=== PATIENT | female | born 1960 | race Two or more races ===

== ENCOUNTER 2019-04-10 13:33 | Emergency (ER) | payer OTHER ==
[2019-04-10 13:40] VITALS: BP 111/89; PULSE 86; TEMP 98; BMI 32.5
--- NOTE | 2019-04-10 14:49 | PDOC ---
Documentation entered by Maximiliano Resendez SCRIBE, acting as scribe for Bryan Maravilla MD. Bryan Maravilla MD: This documentation has been prepared by the Dipti perera Angel, SCRIBE, under my direction and personally reviewed by me in its entirety. I confirm that the documentation accurately reflects all work, treatment, procedures, and medical decision making performed by me. Attending Attestation - Resident Resident Name: [email or web address] - ED Attending Attestation I have performed the following: I have examined & evaluated the patient, The case was reviewed & discussed with the resident, I agree w/resident's findings & plan, Exceptions are as noted - HPI HPI: 04/10/19 15:30 The patient is a 58 year old female with a significant PMH of thyroid disease, HTN, HLD and DMwho presents to the emergency department for PICC line removal. The patient received her PICC line on 03/29/19 with 11 days of Ertapenem. Pt finished her course of abx, called PCP and was advised to come to the ED for PICC line removal. Allergies: NKDA PCP: Kelin Potter - Physicial Exam PE: 04/10/19 14:48 EXAMINATION CONSTITUTIONAL: Well-appearing; well-nourished; in no apparent distress HEAD: Normocephalic; atraumatic EXT: + PICC line to the right upper extremity (no evidence of erythema or discharge at the insertion site); Normal ROM in all four extremities; non- tender to palpation; distal pulses intact SKIN: Warm, dry, no rash NEURO: No focal neurological deficiencies. - Medical Decision Making 04/10/19 14:48 58-year-old female presents for PICC line removal. Will discuss with ID regarding completion of antibiotic therapy. If advised, will remove PICC line.
--- NOTE | 2019-04-10 15:02 | PDOC ---
History of Present Illness - General Chief Complaint: PICC Line Insertion Stated Complaint: PICC LINE REMOVAL Time Seen by Provider: 04/10/19 13:52 History Source: Patient Exam Limitations: Language Barrier ([id number]) - History of Present Illness Initial Comments: 58yo woman with a PMH of HTN, HLD, NIDDM, hypothyroidism, frequent UTI who presents to the emergency department requesting removal of PICC line. Per the patient, she had the PICC line installed for ertapenem infusion that ended within the past 2 days. Per the patient, she was to have a nurse come to her residence to remove the line, however they did not come. The patient contacted her PMD's call service and they stated to present to the ED for removal. Currently, the patient has no symptomatic complaints. The patient denies the following: fever, chills, nausea, vomiting, chest pain, abdominal pain, dysuria , hematuria, diarrhea, hematochezia, leg pain/swelling, and SOB. Allergies: NKDA Past History - Past Medical History Allergies/Adverse Reactions: Allergies Allergy/AdvReac Type Severity Reaction Status Date / Time No Known Allergies Allergy Verified 04/10/19 13:37 Home Medications: Ambulatory Orders Allopurinol [Zyloprim -] 100 mg PO DAILY tablet 03/29/19 Atorvastatin Ca [Lipitor] 20 mg PO HS tablet 03/29/19 Ertapenem Sodium - 1 Gram [Invanz (Pre-Docked)] 1 gm IVPB DAILY #10 bag Levothyroxine [Synthroid -] 25 mcg PO DAILY@0700 tablet 03/29/19 Ramipril [Altace] 5 mg PO DAILY capsule 03/29/19 metFORMIN HCL [Glucophage -] 500 mg PO BID@0700,1630 tablet 03/29/19 COPD: No Diabetes: Yes Disorders: Yes (UTI) HTN: Yes Hypercholesterolemia: Yes Thyroid Disease: Yes - Surgical History Neurologic Surgery: No Orthopedic Surgery: Yes (RT LEG 20 YEARS AGO) - Immunization History Immunization Up to Date: No - Psycho Social/Smoking Cessation Hx Smoking History: Never smoked Have you smoked in the past 12 months: No Information on smoking cessation initiated: No Hx Alcohol Use: No Drug/Substance Use Hx: No Substance Use Type: None Hx Substance Use Treatment: No Review of Systems - Review of Systems Able to Perform ROS?: Yes Is the patient limited Chinese proficient: No Constitutional: No: Chills, Diaphoresis, Fever, Weakness HEENTM: No: Eye Pain, Nose Pain, Throat Pain, Mouth Pain Respiratory: No: Cough, Shortness of Breath Cardiac (ROS): No: Chest Pain, Lightheadedness, Palpitations ABD/GI: No: Constipated, Diarrhea, Nausea, Rectal Bleeding, Vomiting, Tarry Stools : No: Burning, Hematuria Musculoskeletal: No: Back Pain, Joint Pain, Neck Pain Integumentary: No: Bruising, Rash Neurological: No: Headache, Tingling Psychiatric: No: Change in Appetite Endocrine: No: Unexplained Weight Loss Hematologic/Lymphatic: No: Anemia *Physical Exam - Vital Signs Last Vital Signs Temp Pulse Resp BP Pulse Ox 98 F 86 18 111/89 98 04/10/19 13:37 04/10/19 13:37 04/10/19 13:37 04/10/19 13:37 04/10/19 13:37 - Physical Exam General Appearance: Yes: Nourished, Appropriately Dressed. No: Apparent Distress, Intoxicated HEENT: positive: EOMI, RODGER, Normal Voice, Symmetrical, Pharynx Normal, Hearing Grossly Normal. negative: Pale Conjunctivae, Scleral Icterus (R), Scleral Icterus (L), Muffled/Hoarse voice, Pharyngeal Erythema, Tonsillar Exudate, Tonsillar Erythema, Nasal Congestion, Rhinorrhea, Excessive drooling Neck: positive: Trachea midline, Supple. negative: Tender, Lymphadenopathy (R) , Lymphadenopathy (L), Tender lateral, Tender midline Respiratory/Chest: positive: Lungs Clear, Normal Breath Sounds. negative: Chest Tender, Respiratory Distress, Accessory Muscle Use Cardiovascular: positive: Regular Rhythm, Regular Rate, S1, S2. negative: Systolic Murmur Gastrointestinal/Abdominal: positive: Normal Bowel Sounds, Flat, Soft. negative : Tender Lymphatic: negative: Adenopathy Musculoskeletal: positive: Normal Inspection. negative: CVA Tenderness Extremity: positive: Normal Capillary Refill, Normal Range of Motion. negative : Normal Inspection (PICC line in the right ac. no erythema or warmth noted), Tender Integumentary: positive: Normal Color, Dry, Warm Neurologic: positive: Alert, Normal Mood/Affect Medical Decision Making - Medical Decision Making 58yo woman with a PMH of HTN, HLD, NIDDM, hypothyroidism, frequent UTI who presents to the emergency department requesting removal of PICC line. Per the patient, she had the PICC line installed for ertapenem infusion that ended within the past 2 days. Initial vitals: Initial Vital Signs Temp Pulse Resp BP Pulse Ox 98 F 86 18 111/89 98 04/10/19 13:37 04/10/19 13:37 04/10/19 13:37 04/10/19 13:37 04/10/19 13:37 Work up: patient presents for PICC line removal. per Dr. Kc, it is cleared to have the PICC line removed as she has finished her therapy I removed the PICC line without complication. Dispo: Discharge Discharge - Discharge Information Problems reviewed: Yes Clinical Impression/Diagnosis: PIC line (peripherally inserted central catheter) removal Disposition: HOME - Admission No - Follow up/Referral Referrals: Kelin Potter MD [Primary Care Provider] - - Patient Discharge Instructions Patient Printed Discharge Instructions: Peripherally Inserted Central Catheter Additional Instructions: You were seen in the emergency department for the removal of the PICC line. I spoke to Dr. Kc who states it can be removed. Please follow up with your primary medical doctor within 1 week after discharge for follow up care and management., Please return to the emergency department if you have fever. Thank you. pi?ai?si?si genaro n?kka? ceyyunnatin?greenlandic ni??a?e aty?hita vibh?gattil ka??u. it n? kkan?ceyy?menn pa?ayunna ???. b??b?eyum?greenlandic ?n sans?riccu. ph? addie shara?inu ? m?n?jmen?inum?green[place]ic ?isc?rj ceyta 1 ??caykku??il ni??a?u?e pr?thamika me?ikkal ?? ?k?a?um?greenlandic bandhappe?uka., ni??a?kk daily u??e?kil dayav?greenlandic aty?hita vibh?gattil? kk ma?a??uka. sb. - Post Discharge Activity
== END 2019-04-10 16:07 | disposition home or self-care (01) ==
LOC: JER 13:33
DX: Z45.2 Encounter for adjustment and management of vascular access device (principal); I10 Essential (primary) hypertension; E78.00 Pure hypercholesterolemia, unspecified; E11.9 Type 2 diabetes mellitus without complications; Z79.84 Long term (current) use of oral hypoglycemic drugs; Z87.440 Personal history of urinary (tract) infections
CPT/HCPCS: 99282-25